=== PATIENT | male | born 1970 | race Caucasian/White ===

== ENCOUNTER 2019-05-25 18:26 | Inpatient (IN) | payer BC ==
[2019-05-25] MEDS ORDERED: Midazolam HCl 2 mg/2 ml Vial ONE (19:29)
[2019-05-25] MEDS ORDERED: Fentanyl 100 MCG/2 ML VIAL ONE (19:29)
[2019-05-25] MEDS ORDERED: Lidocaine 2% Jelly 5 ML TUBE ONE (19:30)
[2019-05-25] MEDS ORDERED: HYDROmorphone 0.5 MG/0.5 ML SYRINGE ONE (19:30)
[2019-05-25] MEDS ORDERED: Bupivacaine PF 0.5% 30 ML VIAL ONE (19:44)
[2019-05-25] MEDS ORDERED: Lidocaine 1% w/Epinephrine 1:100K 20 ML VIAL ONE (19:44)
[2019-05-25] MEDS ORDERED: Lidocaine 1% PF 5 ML VIAL ONE (20:20)
[2019-05-25] MEDS ORDERED: PHENYLEPHRINE-NS 100 MCG/ML 10 ML SYRINGE ONE (20:20)
[2019-05-25] MEDS ORDERED: Vecuronium 10 MG VIAL ONE (20:20)
[2019-05-25] MEDS ORDERED: EPHEDRINE 25 MG/5 ML SYRINGE ONE (20:20)
[2019-05-25] MEDS ORDERED: Rocuronium Bromide 10 MG/ML (10ML VIAL) ONE (20:20)
[2019-05-25] MEDS ORDERED: Ondansetron PF 4 MG/2 ML Vial ONE (20:20)
[2019-05-25] MEDS ORDERED: Succinylcholine Chloride 20 MG/ML 10 ml SYRINGE FS ONE (20:20)
[2019-05-25] MEDS ORDERED: Glycopyrrolate 0.2 MG/ML 5 ML SYRINGE ONE (20:20)
[2019-05-25] MEDS ORDERED: PROPOFOL 200 MG/20 ML VIAL ONE (20:20)
[2019-05-25] MEDS ORDERED: Fentanyl 250 MCG/5 ML VIAL ONE (20:35)
[2019-05-25] MEDS ORDERED: Phenylephrine 10 MG/ML VIAL ONE (20:57)
[2019-05-26] MEDS ORDERED: Promethazine HCl 25 MG/ML VIAL IM PRN ×3 (00:06→00:17)
[2019-05-26] MEDS ORDERED: Ondansetron PF 4 MG/2 ML Vial IVP PRN ×2 (00:06→00:17)
[2019-05-26] MEDS ORDERED: hydrALAZINE 20 MG/ML VIAL SLOW IVP PRN (00:06)
--- NOTE | 2019-05-26 00:14 | PDOC.OP ---
Operative Note - Operative Note Operative Note: Pre and Post: perofrated diverticulosis OP: open sigmoid with washout, drainage of abscess, anastomosis, incidental appendectomy, diverting ileostomy EBL:<50 Fluids:2L Specimen: sigmoid and appendix comp: none Dispo: stafford drains: x2 round drains
[2019-05-26] MEDS ORDERED: Ketorolac Tromethamine 30 MG/ML VIAL IVP PRN (00:17)
[2019-05-26] MEDS ORDERED: Zolpidem Tartrate 5 MG TAB PO PRN (00:17)
[2019-05-26] MEDS ORDERED: diphenhydrAMINE 25 MG CAP PO PRN (00:17)
[2019-05-26] MEDS ORDERED: Naloxone HCl 0.4 mg/ml Vial IV PRN (00:17)
[2019-05-26] MEDS ORDERED: Promethazine HCl 25 MG/ML VIAL SLOW IVP PRN (00:17)
[2019-05-26] MEDS ORDERED: fentaNYL Citrate/PF 2,000 MCG in Sodium Chloride 0.9% 60 ML IV PRN (00:17)
[2019-05-26] MEDS ORDERED: diphenhydrAMINE 50 MG/ML VIAL IM PRN (00:17)
[2019-05-26] MEDS ORDERED: Ondansetron HCl/PF 4 MG/2 ML Vial IVP PRN (00:17)
[2019-05-26] MEDS ORDERED: diphenhydrAMINE 50 MG/ML VIAL IVP PRN (00:17)
[2019-05-26] MEDS ORDERED: Communication Order-Pharmacy FS SCH (00:30)
[2019-05-26] MEDS ORDERED: Fentanyl 100 MCG/2 ML VIAL ONE (00:50)
[2019-05-26] MEDS ORDERED: cefOXitin Sodium/Dextrose,Iso 2 GM in Premix Bag 1 BAG IVPB SCH (01:00)
--- NOTE | 2019-05-26 01:45 | OP ---
DATE OF PROCEDURE: 05/25/2019 PREOPERATIVE DIAGNOSIS: Perforated diverticulitis with abscess. POSTOPERATIVE DIAGNOSIS: Perforated diverticulitis with abscess. PROCEDURES PERFORMED: 1. Sigmoidectomy with hand-sewn anastomosis. 2. Abdominal washout. 3. Drainage of intraabdominal abscess. 4. Diverting ileostomy. 5. Incidental appendectomy. ANESTHESIA: General. ESTIMATED BLOOD LOSS: Less than 50. FLUIDS: 2 L. SPECIMENS: Appendix and sigmoid colon. COMPLICATIONS: None. COUNTS: Sponge and needle count were correct x2. INDICATIONS FOR PROCEDURE: The patient is a 48-year-old gentleman, who has a 5 or 6 day history of increasing abdominal pain and fevers at home of 203. He presented to an outside emergency room and was diagnosed with perforated diverticulitis. He was transferred to this institution for surgical care. CONDUCT OF THE OPERATION: After written preoperative informed consent, the patient was brought to the operating room, placed in the low lithotomy position and intubated. The abdomen was prepared and draped in a sterile fashion and a time-out was performed. A midline incision was made and the abdomen was entered. There was feculent fluid, as well as a malodor within the abdomen. This was suctioned free. The small bowel was run. There was one small loop of the terminal ileum that was attached to an abscess cavity about the sigmoid mesentery. All the small bowel was freed back to the cecum. The sigmoid colon was then isolated away from the other bowel utilizing packs. A Bookwalter retractor was assembled. The mesentery was very thickened secondary to inflammation. There was obvious perforation. The colon was taken down off the white line of Toldt on the left side. This was extended down around the pelvis. The majority of the sigmoid colon that was involved was just past the termination of the left colon and heading into a sweeping area to the right. After this turned near the cecum and headed back toward the pelvis, the colon appeared relatively normal. Therefore, the decision was made to initially excise the damaged area and evaluate the ends. This was done by finishing the mobilization of the colon off the left abdominal wall. Two windows were made at the planned transection of the colon. Stapler was used to divide the colon. The colon was divided off the mesentery, staying very close to the mesenteric wall of the colon. The inflammation and edema within the pelvis made dissection for the ureter treacherous. Therefore, the decision was made to just stay on the colon wall. Once the colon was resected, the proximal and distal ends of the remaining colon actually laid together without tension. The fat was cleared away from the ends of the colon. Stay sutures were placed laterally. The posterior wall of silk sutures was placed. The staple lines were excised. 3-0 PDS was used to reapproximate the colon wall. Once the circumferential anastomosis had been performed, an anterior row of silk Lembert sutures was placed. I believe I figured left off with the anterior row of Lembert sutures. The anastomosis laid without tension. The abdomen was generously irrigated. Gloves were changed. Abscess cavity at the base of the mesentery of the sigmoid colon was inspected and there were no remaining pockets noted. The appendix was identified and the distal third of the appendix was very inflamed. I decided to perform appendectomy. A window was made through the mesoappendix at the base of the cecum. Silk ties were placed proximally and distally and it was divided with a scalpel. The mesoappendix was taken down with the LigaSure. The stump of the appendix was inverted utilizing a silk suture. Drains were brought in through separate stab incisions and laid within the left pericolic gutter heading down toward the pelvis, as well as down the right pericolic gutter. Both of these drains were near the anastomosis. A disk of skin was removed in the right lower quadrant. Dissection was carried down to the abdominal wall. A cruciate incision was made on the anterior rectus fascia. Muscle-splitting technique was used to reach the posterior sheath. This was also divided in cruciate fashion. The defect easily permitted to fingers. A piece of terminal ileum was selected and brought out through the defect. This reached nicely and without tension. A suspension nikki was placed through the mesentery. Attention was turned back to the abdomen. There was no bleeding noted. The anastomosis was intact. The drains were in place. Seprafilm was placed and the abdomen was closed with 2-0 PDS suture. The skin was irrigated and loosely closed with sabino followed by Telfa bekah. This was excluded from the field with a towel. The ileostomy was matured in the Traci fashion. This was achieved utilizing 3-0 Vicryl sutures. The appliance was placed. The drains were secured to the patient's skin with nylon suture. Sterile dressings were placed over the midline. The patient was returned back to the supine position and transferred to the postanesthesia care area in good condition having tolerated the procedure well. Job ID: [id number]
[2019-05-26 02:41] VITALS: BMI 38.3
[2019-05-26] MEDS: Sodium Chloride 0.9% 1,000 ML IV SCH ×3 (03:53→15:49)
[2019-05-26] MEDS: cefOXitin Sodium/Dextrose,Iso 2 GM in Premix Bag 1 BAG IVPB SCH ×2 (03:58→11:18)
[2019-05-26] MEDS: Ketorolac Tromethamine 30 MG/ML VIAL IVP SCH ×3 (06:05→17:22)
[2019-05-26] MEDS: Enoxaparin Sodium 40 MG/0.4 ML SYRINGE SC SCH (08:41)
[2019-05-26] MEDS: Famotidine/PF 20 mg/2ml Vial SLOW IVP SCH ×2 (08:41→20:44)
[2019-05-26] MEDS ORDERED: Lactated Ringer's 1,000 ML IV SCH (11:45)
--- NOTE | 2019-05-26 12:12 | PRG ---
DATE OF SERVICE: 05/26/2019 CHIEF COMPLAINT: I feel a lot better. HISTORY OF PRESENT ILLNESS: The patient is postoperative day #1 from a sigmoidectomy with diverting ileostomy and drainage of intraabdominal abscess. He states that his abdominal pain is significantly improved compared to preoperative. His pain is being well controlled. He has not needed out of bed yet. No other complaints. PHYSICAL EXAMINATION: VITAL SIGNS: Temperature 98.4, heart rate 100, blood pressure 107/66. Van-Farley 30 and 15 mL. Hoskins catheter has averaged 65 mL/h since 7 o'clock this morning. GENERAL: Obese male, no apparent distress. LUNGS: Grossly clear to auscultation bilaterally. HEART: Regularly regular. ABDOMEN: Soft and appropriately tender. Both Van-Farley drains are serosanguineous. The ileostomy is pink and viable. There is bowel sweat within the appliance. There is some mild strike through of the midline dressing. LABORATORY DATA: Pending. ASSESSMENT: 1. Postop day #1 from sigmoidectomy for perforated diverticulitis. 2. I will get some labs this morning for postoperative baseline. His heart rate is starting to go up a little bit, so I am going to order a liter of bolus. This could also be from atelectasis and inactivity. His oxygen saturations are in the low 90s. PLAN: Continue antibiotics for this time. Advance to clear liquid diet today - he is not having any nausea. Bolus a liter of fluid and check labs. I spoke with nursing about incentive spirometry. This was already ordered after surgery. Physical therapy consult. Continue with mechanical and pharmacologic DVT prophylaxis. Job ID: [id number]
[2019-05-26 12:28] LABS: #Lymphocytes 0.4 thou/uL (1.20-3.40); #Monocytes 0.7 thou/uL (0.11-0.59); %Lymphocytes 3.6 % (21.0-51.0); %Monocytes 6.5 % (0.0-10.0); %Neutrophils 89.9 % (42.0-75.0); Hemoglobin 12.8 g/dL (14.0-18.0); Mean Corpuscular HGB CONC 33.2 g/dL (32.0-36.0); Mean Corpuscular Hemoglobin 30.1 pg (27.0-31.0); Mean Corpuscular Volume 90.5 fL (78.0-98.0); Mean Platelet Volume 7.1 fL (7.4-10.4); Platelet Count 187 thou/uL (130-400); RBC Distribution Width 12.1 % (11.5-14.5); Red Blood Cell (RBC) Count 4.27 mill/uL (4.70-6.10); White Blood Cell (WBC) Count 11.1 thou/uL (4.8-10.8)
[2019-05-26 12:47] LABS: Anion Gap 15 mmol/L (10-20); BUN (Urea Nitrogen) 12 mg/dL (8.9-20.6); Calc. Creatinine Clearance 135 mL/min (70-130); Calcium 8.6 mg/dL (7.8-10.44); Carbon Dioxide 23 mmol/L (22-29); Chloride 102 mmol/L (98-107); Estimated GFR-MDRD 66; Glucose 202 mg/dL (70-105); Potassium 4.2 mmol/L (3.5-5.1); Sodium 136 mmol/L (136-145)
[2019-05-26] MEDS ORDERED: FLU VACC QS2019-20(6MOS UP)/PF 60 MCG/0.5 ML SYRINGE IM ONE (21:00)
[2019-05-27] MEDS: Ketorolac Tromethamine 30 MG/ML VIAL IVP SCH ×5 (00:41→23:59)
[2019-05-27] MEDS: Sodium Chloride 0.9% 1,000 ML IV SCH ×2 (02:21→14:30)
[2019-05-27 05:12] LABS: #Lymphocytes 0.6 thou/uL (1.20-3.40); #Monocytes 0.7 thou/uL (0.11-0.59); #Neutrophils 7.1 thou/uL (1.40-6.50); %Eosinophils 0.2 % (0.0-10.0); %Lymphocytes 6.8 % (21.0-51.0); %Monocytes 8.4 % (0.0-10.0); %Neutrophils 84.6 % (42.0-75.0); Hemoglobin 9.9 g/dL (14.0-18.0); Mean Corpuscular HGB CONC 33.3 g/dL (32.0-36.0); Mean Corpuscular Hemoglobin 30.3 pg (27.0-31.0); Mean Platelet Volume 7.2 fL (7.4-10.4); Platelet Count 158 thou/uL (130-400); RBC Distribution Width 12.1 % (11.5-14.5); Red Blood Cell (RBC) Count 3.29 mill/uL (4.70-6.10); White Blood Cell (WBC) Count 8.4 thou/uL (4.8-10.8)
[2019-05-27 05:30] LABS: Anion Gap 11 mmol/L (10-20); BUN (Urea Nitrogen) 13 mg/dL (8.9-20.6); Calc. Creatinine Clearance 204 mL/min (70-130); Calcium 8.3 mg/dL (7.8-10.44); Carbon Dioxide 25 mmol/L (22-29); Chloride 104 mmol/L (98-107); Estimated GFR-MDRD Greater than 90; Glucose 123 mg/dL (70-105); Potassium 4.1 mmol/L (3.5-5.1); Sodium 136 mmol/L (136-145)
[2019-05-27] MEDS: Famotidine/PF 20 mg/2ml Vial SLOW IVP SCH (09:00)
[2019-05-27] MEDS: Enoxaparin Sodium 40 MG/0.4 ML SYRINGE SC SCH (09:01)
[2019-05-27] MEDS ORDERED: Morphine 2 MG/ML SYRINGE SLOW IVP PRN (10:20)
[2019-05-27] MEDS ORDERED: HYDROcodone/Acetaminophen 5/325 mg Tablet PO PRN (10:22)
--- NOTE | 2019-05-27 10:53 | PRG ---
DATE OF SERVICE: 05/27/2019 CHIEF COMPLAINT: "I feel a lot better." SUBJECTIVE: The patient is postoperative day 2 for an open sigmoidectomy with anastomosis, diverting ileostomy, incidental appendectomy, drainage of intraabdominal abscess-he states that he is doing much better. His ileostomy is producing flatus. He has been up and ambulating. Tolerating water without any difficulty. He is not having any nausea. His pain is well controlled. OBJECTIVE: VITAL SIGNS: Temperature 98.2, blood pressure 146/80, heart rate 78, he is still on some supplemental oxygen, saturating anywhere from 92% to 95%. Urine output almost 2 L yesterday. Van-Madhavi were 90 and 45-serosanguineous and setting out. GENERAL: In no acute distress. LUNGS: Grossly clear to auscultation bilaterally with normal air movement. HEART: Regular without any murmurs. ABDOMEN: Soft and appropriately tender. Van-Farley drains are serosanguineous. Ileostomy has an abundant amount of flatus within the appliance. Normoactive bowel sounds. LABORATORY DATA: White blood cell count of 8. Electrolytes are within limits. Creatinine is 0.78. ASSESSMENT: Postoperative day 2 from sigmoidectomy-the patient seems to be progressing well despite his perforated diverticulitis. His white blood cell count is normal and he has been afebrile. He is making adequate amount of urine and his pain is controlled. PLAN: 1. 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 2. Advance his diet. 3. Hep-Lock IV. 4. Continue antibiotics for another 2 days. 5. Hoskins catheter is out-monitor urine output. 6. Stoma teaching. 7. Case Management referral for home health. The patient lives out of town and is here with his . He works in the [employer] business. They are from [place]. They are still making decisions as to whether or not, they are going to go back to [place] or stay in town with his sister. They live in an and are currently in an park. Job ID: [id number]
[2019-05-27] MEDS: cefOXitin Sodium/Dextrose,Iso 2 GM in Premix Bag 1 BAG IVPB SCH ×3 (12:43→20:22)
[2019-05-27] MEDS: Gabapentin 300 MG CAP PO SCH ×2 (13:59→20:00)
[2019-05-27] MEDS: Famotidine 20 MG TAB PO SCH (20:00)
[2019-05-28] MEDS: cefOXitin Sodium/Dextrose,Iso 2 GM in Premix Bag 1 BAG IVPB SCH ×3 (04:36→20:30)
[2019-05-28] MEDS: Ketorolac Tromethamine 30 MG/ML VIAL IVP SCH ×4 (05:38→23:33)
--- NOTE | 2019-05-28 06:53 | PRG ---
DATE OF SERVICE: 05/28/2019 CHIEF COMPLAINT: "I'm doing fine." HISTORY OF PRESENT ILLNESS: The patient is postop day three from an open sigmoidectomy with diverting ileostomy, appendectomy, and drainage of intraabdominal abscess. He states he is doing well. Tolerating his regular diet. Ambulating. Voiding without difficulty. The pain is well controlled. OBJECTIVE: VITAL SIGNS: Temperature 98.6, heart rate 80, blood pressure 147/92. LUNGS: Grossly clear to auscultation bilaterally. HEART: Irregularly irregular. ABDOMEN: Soft, nontender, nondistended. Normoactive bowel sounds. Incision is clean and without purulent drainage. Ileostomy is functioning well. Mucosa is pink and viable. Van-Farley drains are nearly both completely serous and had 50 and 20 mL out of those. Ileostomy is measured at 750 mL. ASSESSMENT: Postoperative day three from sigmoidectomy for perforated diverticulitis-the patient is doing very well. He is nearing the criteria for discharge. Last remaining items to be coordinated include stoma care and case management for home health. We need to arrange for stoma supplies. Once these things have been accomplished, he may be discharged. PLAN: Stoma nurse today. Case management for home health. Establish ostomy supply procurement. Job ID: [id number]
[2019-05-28] MEDS: Losartan 25 MG TAB PO SCH (10:43)
[2019-05-28] MEDS: Gabapentin 300 MG CAP PO SCH ×3 (10:43→20:30)
[2019-05-28] MEDS: Famotidine 20 MG TAB PO SCH ×2 (10:43→20:30)
[2019-05-28] MEDS: Enoxaparin Sodium 40 MG/0.4 ML SYRINGE SC SCH (12:58)
[2019-05-28] MEDS ORDERED: Enoxaparin Sodium 40 MG/0.4 ML SYRINGE SC SCH (21:00)
[2019-05-29] MEDS: cefOXitin Sodium/Dextrose,Iso 2 GM in Premix Bag 1 BAG IVPB SCH (04:48)
[2019-05-29] MEDS: Ketorolac Tromethamine 30 MG/ML VIAL IVP SCH (06:20)
[2019-05-29] MEDS: Losartan 25 MG TAB PO SCH (09:32)
[2019-05-29] MEDS: Famotidine 20 MG TAB PO SCH (09:32)
[2019-05-29] MEDS: Gabapentin 300 MG CAP PO SCH (09:32)
[2019-05-29 11:22] VITALS: BP 164/94; TEMP 98.2
[2019-05-29] MEDS ORDERED: Ibuprofen 800 MG TAB PO PRN (14:00)
--- NOTE | 2019-05-30 03:26 | DIS ---
DATE OF ADMISSION: 05/26/2019 DATE OF DISCHARGE: 05/29/2019 PROCEDURES PERFORMED: Open sigmoid colectomy, drainage of intraabdominal abscess, ileostomy formation, incidental appendectomy on May 26, 2019. CHIEF COMPLAINT: My abdomen hurts. CLINICAL COURSE: The patient presented to an outside emergency room with an ongoing/increasing complaint of abdominal pain. This has been present for almost a week. He was evaluated and found to have free intraabdominal air consistent with perforated diverticulitis. He was transferred to our institution. He was taken to the operating room and underwent an open sigmoidectomy with drainage of intraabdominal abscess, hand-sewn anastomosis, diverting ileostomy, and incidental appendectomy. He was then recovered on the stafford and did well. His ileostomy started functioning on postoperative day #2. He was on a regular diet by postoperative day #3. Ileostomy output was less than a liter. He had been afebrile. The wound was doing well. He underwent ostomy training. Home Health care was established. He was then discharged home. PAST MEDICAL HISTORY: Hypertension and anxiety. ALLERGIES: NONE. MEDICATIONS: 1. Losartan. 2. Gabapentin. 3. Lexapro. DISCHARGE MEDICATIONS: [place] 5/325 mg-one tablet every 6 hours as needed for pain. PHYSICAL EXAMINATION: VITAL SIGNS: Temperature 98.3, blood pressure 154/90, heart rate 69. GENERAL: Obese male, in no apparent distress. HEAD: Normocephalic, atraumatic. NECK: Supple. Midline trachea. LUNGS: Grossly clear to auscultation bilaterally. HEART: Regularly regular. ABDOMEN: Soft, appropriately tender, normoactive bowel sounds. The ileostomy in the right lower quadrant is pink and viable. There is effluent within the appliance, as well as gas. His midline incision is loosely stapled and has serous drainage. There is no erythema. His one remaining drain is serosanguineous, but more on the serous side. There is no purulent drainage. EXTREMITIES: Full range of motion. PSYCHIATRIC: Good insight. Good judgment. DISPOSITION: Home. CONDITION: Good. INSTRUCTIONS: He may shower. Regular diet. He does not need to measure how much is coming out of his drain. Home Health has been established for ostomy care. He may shower. No lifting anything over 25 pounds for the next 3 weeks. FOLLOWUP: Follow up with Dr. Anthony next Tuesday. Job ID: [id number]
--- NOTE | 2019-06-01 07:43 | PQF ---
LASHAY RUCKER JOHN [id number] SURG A- 3329 [id number] CLINICAL DOCUMENTATION CLARIFICATION FORM: POST DISCHARGE Addendum to original discharge summary date: ____ Late entry note date: __ DATE: 06/01/2019 ATTN: Warren Nina Please exercise your independent, professional judgment in responding to the clarification form. Clinical indicators are provided on the bottom of this form for your review Please check appropriate box(es): [ x ] Sepsis [ ] SIRS due to non-infectious process (please specify etiology) [ ] without organ dysfunction [ ]with organ dysfunction [ ] Septic Shock [ ] Localized infection without sepsis [ ] Other diagnosis [ ] Unable to determine In addition, please specify: Present on Admission (POA): [ x] Yes [ ] No [ ] Unable to determine For continuity of documentation, please document condition throughout progress notes and discharge summary. Thank You. CLINICAL INDICATORS - SIGNS/ SYMPTOMS / LABS Laboratory 05/26 WBC 11.1, Neutrophils 89.8%, Lymphocytes 0.4 Vital signs 05/26 Temp 98.1, Resp 20, Pulse 110, BP 126/84 Pathology Diagnosis 05/28 Acute appendicitis, mild, with extensive serositis Pathology Diagnosis 05/28 Perforated Diverticulitis ED notes p2 05/25 SIRS Scoring pt did meet at least 1 criteria Operative report p1 05/25 Dr Neumann has 5 or 6 days history of increasing abdominal pain and fevers at home 203. PN p1 05/26 DR Anthony His heart rate is starting to go up a little bit, so I am going to order of bolus. This could also be from atelectasis and inactivity PN p1 05/26 DR Anthony his oxygen saturation are in the low 90s RISK FACTORS Operative report p1 05/25 Perforated diverticulitis with abscess Discharge summary p1 05/29 Hypertension Discharge summary p1 05/29 Anxiety ED Notes p1 05/25 Obesity TREATMENTS Operative report p1 05/25 Incidental Appendectomy Operative report p1 05/25 Sigmoidectomy with hand-sewn anastomosis Operative report p1 05/25 Diverting Ileostomy JUN 03 IVF bolus 1L JUN 03 IV Cefoxitin 2gm (This form is maintained as a part of the permanent medical record) 2014 [employer]. All Rights Reserved [email or web address]
--- NOTE | 2019-06-01 07:44 | PQF ---
LASHAY RUCKER JOHN [id number] SURG A- 3329 [id number] CLINICAL DOCUMENTATION CLARIFICATION FORM: POST DISCHARGE Addendum to original discharge summary date: ____ Late entry note date: __ DATE: 06/01/2019 ATTN: Warren Nina Please exercise your independent, professional judgment in responding to the clarification form. Clinical indicators are provided on the bottom of this form for your review Final Diagnosis on the Pathology report: Acute Appendicitis, mild, with extensive serositis Clarification of Pathology report: Please check appropriate box(s): [ ] Agree w the pathology finding of Acute Appendicitis, mild, with extensive serositis [ x ] Other explanation of pathology findings (please specify)____Appendix was bathed in stool and purulence from the nearby colon perforation [ ] Other diagnosis [ ] Unable to determine For continuity of documentation, please document condition throughout progress notes and discharge summary. Thank You. CLINICAL INDICATORS - SIGNS/ SYMPTOMS / LABS Pathology Diagnosis 05/28 Perforated Diverticulitis Pathology Diagnosis 05/28 Acute appendicitis, mild, with extensive serositis Laboratory 05/26 WBC 11.1, Neutrophils 89.8%, Lymphocytes 0.4 Vital signs 05/26 Temp 98.1, Resp 20, Pulse 110, BP 126/84 Operative report p1 05/25 Dr Neumann has 5 or 6 days history of increasing abdominal pain and fevers at home 103. RISK FACTORS Operative report p1 05/25 Perforated diverticulitis with abscess Discharge summary 05/29 Hypertension Discharge summary 05/29 Anxietas ED Notes p1 05/25 - Obesity TREATMENTS Operative report p1 05/25 Incidental Appendectomy Operative report p1 05/25 Sigmoidectomy with hand-sewn anastomosis Operative report p1 05/25 Diverting Ileostomy JUN 03 IVF bolus 1L JUN 03 IV Cefoxitin 2gm (This form is maintained as a part of the permanent medical record) 2014 [employer] All Rights Reserved Shayna MTDElvis
== END 2019-05-29 12:48 | disposition home health service (06) | DRG 854 ==
LOC: ERS 18:26 → SDC 19:34 → SURG A 05-26 02:02
PROVIDERS: ADMIT Surgery; ATTEND Surgery
PROC: 0DTN0ZZ Resection of Sigmoid Colon, Open Approach (ICD-10-PCS; principal; 2019-05-25)
PROC: 0D1B0Z4 Bypass Ileum to Cutaneous, Open Approach (ICD-10-PCS; 2019-05-25)
PROC: 0DTJ0ZZ Resection of Appendix, Open Approach (ICD-10-PCS; 2019-05-25)
PROC: 3E0M05Z Introduction of Adhesion Barrier into Peritoneal Cavity, Open Approach (ICD-10-PCS; 2019-05-25)
DX: A41.9 Sepsis, unspecified organism (principal); K57.20 Diverticulitis of large intestine with perforation and abscess without bleeding; I10 Essential (primary) hypertension; F41.9 Anxiety disorder, unspecified; Z79.899 Other long term (current) drug therapy
CPT/HCPCS: 36415; 80048; 85025; 88304; 88307; 90471; 90686; 90732; 96360; G0008; G0009; J0360; J0694; J1170; J1650; J1885; J2001; J2250; J2370; J2405; J2704; J3010; J3490; S0020; S0028